=== PATIENT | female | born 1980 | race Caucasian/White ===

== ENCOUNTER 2016-06-15 20:46 | Emergency (ER) | payer OTHER ==
[~2016-06-15] VITALS: Ht 165.1 cm; Wt 90.7 kg
--- NOTE | 2016-06-15 21:16 | ED Syncope ---
General Chief Complaint: Dizziness/Syncope Stated Complaint: DIZZY PASSED OUT INJ ELBOW Source of Information: Patient Exam Limitations: No Limitations History of Present Illness Time Seen by Provider: 21:12 Initial Comments To ER with reports of a an episode of loss of consciousness. Patient states that she was at [place] with family when she bumped her "funny bone" of the left arm on a metal counter which caused intense pain. Immediately after that he became lightheaded and fell to the floor. Her friend at the bedside was present and states that she seemed to be unconscious for about 10-15 seconds and was shaking briefly. She then awakened suddenly and felt fine. Currently, she feels fine. She denies any preceding shortness of breath or palpitations or shortness of breath palpitations or chest pain after the event. Her and her friend at the bedside both insisted that she be checked out. She did have a history of a syncopal event in 2007 on [place] she took a drink of ice cold something and passed out but only briefly. She denies any complaints of pain to the elbow and now denies any headache nausea or other concerns. Timing/Prior Episodes: Remote History Current Symptoms: Headache Constitutional: see HPI EENTM: see HPI Respiratory: no symptoms reported, No short of breath Cardiovascular: see HPI, No edema, No Hx of Intervention, No palpitations, syncope, No vascular heart diseas Genitourinary: no symptoms reported Musculoskeletal: no symptoms reported Skin: no symptoms reported Psychiatric/Neurological: See HPI, Denies Headache Past Uoluueq-Xbduhx-Yyibva Hx Patient Social History Alcohol Use: Denies Use Recreational Drug Use: No Smoking Status: Never a Smoker Recent Foreign Travel: No Contact w/Someone Who Travel: No Recent Hopitalizations: No Seasonal Allergies Seasonal Allergies: No Surgeries HX Surgeries: No Respiratory Hx Respiratory Disorders: No Cardiovascular Hx Cardiac Disorders: No Neurological Hx Neurological Disorders: No Reproductive System Hx Reproductive Disorders: No Genitourinary Hx Genitourinary Disorders: No Gastrointestinal Hx Gastrointestinal Disorders: No Musculoskeletal Hx Musculoskeletal Disorders: No Endocrine Hx Endocrine Disorders: Yes Endocrine Disorders: Hypothyroidsim HEENT HX ENT Disorders: No Cancer Hx Cancer: No Psychosocial Hx Psychiatric Problems: Yes Behavioral Health Disorders: Depression Physical Exam Vital Signs Vital Sign - Last 12Hours 06/15/16 21:00 Temp 97.4 Pulse 93 Resp 18 B/P (MAP) 133/92 Pulse Ox 95 O2 Delivery Room Air Capillary Refill : General Appearance: No Apparent Distress, WD/WN HEENT: PERRL/EOMI, TMs Normal Neck: Full Range of Motion, Normal Inspection Cardiovascular: Regular Rate, Rhythm, No Edema, Normal Peripheral Pulses Respiratory: Lungs Clear, Normal Breath Sounds, No Accessory Muscle Use, No Respiratory Distress Gastrointestinal: Normal Bowel Sounds, Non Tender, Soft Extremities: Normal Capillary Refill, Normal Inspection Neurologic/Psychiatric: Alert, Oriented x3 Cranial Nerves: Normal Hearing, Normal Speech, PERRL Skin: Normal Color, Warm/Dry Progress/Results/Core Measures Results/Orders Lab Results Laboratory Tests Test 06/15/16 21:16 06/15/16 21:42 Range/Units Urine Color YELLOW Urine Clarity SLIGHTLY CLOUDY Urine pH 6.5 5-9 Urine Specific [place] 1.020 1.016-1.022 Urine Protein 1+ H NEGATIVE Urine Glucose (UA) NEGATIVE NEGATIVE Urine Ketones NEGATIVE NEGATIVE Urine Nitrite NEGATIVE NEGATIVE Urine Bilirubin NEGATIVE NEGATIVE Urine Urobilinogen NORMAL NORMAL MG/DL Urine Leukocyte Esterase 3+ H NEGATIVE Urine RBC (Auto) 1+ H NEGATIVE Urine RBC RARE /HPF Urine WBC 10-25 H /HPF Urine Squamous Epithelial Cells 25-50 H /HPF Urine Renal Epithelial Cells NONE /HPF Urine Crystals PRESENT H /LPF Urine Amorphous Sediment MOD ALEAX URATES H /LPF Urine Bacteria FEW H /HPF Urine Casts NONE /LPF Urine Mucus NEGATIVE /LPF Urine Culture Indicated YES White Blood Count 10.8 4.3-11.0 10^3/uL Red Blood Count 4.46 4.35-5.85 10^6/uL Hemoglobin 13.0 11.5-16.0 G/DL Hematocrit 39 35-52 % Mean Corpuscular Volume 87 80-99 FL Mean Corpuscular Hemoglobin 29 25-34 PG Mean Corpuscular Hemoglobin Concent 34 32-36 G/DL Red Cell Distribution Width 13.1 10.0-14.5 % Platelet Count 331 130-400 10^3/uL Mean Platelet Volume 9.0 7.4-10.4 FL Neutrophils (%) (Auto) 55 42-75 % Lymphocytes (%) (Auto) 39 12-44 % Monocytes (%) (Auto) 5 0-12 % Eosinophils (%) (Auto) 1 0-10 % Basophils (%) (Auto) 0 0-10 % Neutrophils # (Auto) 6.0 1.8-7.8 X 10^3 Lymphocytes # (Auto) 4.2 H 1.0-4.0 X 10^3 Monocytes # (Auto) 0.5 0.0-1.0 X 10^3 Eosinophils # (Auto) 0.1 0.0-0.3 10^3/uL Basophils # (Auto) 0.0 0.0-0.1 10^3/uL D-Dimer 0.50 H 0.00-0.49 UG/ML Sodium Level 140 135-145 MMOL/L Potassium Level 3.9 3.6-5.0 MMOL/L Chloride Level 104 98-107 MMOL/L Carbon Dioxide Level 26 21-32 MMOL/L Anion Gap 10 5-14 MMOL/L Blood Urea Nitrogen 11 7-18 MG/DL Creatinine 0.89 0.60-1.30 MG/DL Estimat Glomerular Filtration Rate > 60 BUN/Creatinine Ratio 12 Glucose Level 107 H 70-105 MG/DL Calcium Level 9.1 8.5-10.1 MG/DL Total Bilirubin 0.2 0.1-1.0 MG/DL Aspartate Amino Transf (AST/SGOT) 13 5-34 U/L Alanine Aminotransferase (ALT/SGPT) 15 0-55 U/L Alkaline Phosphatase 79 40-136 U/L Total Protein 7.2 6.4-8.2 G/DL Albumin 3.9 3.2-4.5 G/DL Thyroid Stimulating Hormone (TSH) 2.82 0.35-4.94 UIU/ML My Orders Orders - RADHA KILGORE DATA ANALYSIS ASSISTANT Cbc With Automated Diff (06/15/16 21:11) Comprehensive Metabolic Panel (06/15/16 21:11) Thyroid Stimulating Hormone (06/15/16 21:11) Ua Culture If Indicated (06/15/16 21:11) Urine Bedside (06/15/16 21:11) Ct Head Wo (06/15/16 21:11) Ekg Tracing (06/15/16 21:11) Fibrin Degradation Products (06/15/16 21:11) Urine Culture (06/15/16 21:16) Vital Signs/I&O Vital Sign - Last 12Hours 06/15/16 21:00 Temp 97.4 Pulse 93 Resp 18 B/P (MAP) 133/92 Pulse Ox 95 O2 Delivery Room Air Diagnostic Imaging Diagonstic Imaging: CT Comments NAME: [facility] REC#: [id number] PT STATUS: REG ER : 1980 PHYSICIAN: RADHA KILGORE APRN ADMIT DATE: 06/15/16/ER Signed Date of Exam:06/15/16 CT HEAD WO PROCEDURE: CT head without contrast. TECHNIQUE: Multiple contiguous axial images were obtained through the brain without the use of intravenous contrast. Indication: Dizziness, passed out and hit head. Comparison: None available. Findings: No hyperdense hemorrhage or space-occupying mass. Prominent cisterna magna, a normal variant. No hydrocephalus or midline shift. The basilar cisterns are normal. Lambert-white matter differentiation is well preserved. The mastoid air cells are clear. Paranasal sinuses are normal. No focal osseous abnormality of the calvarium. Impression: No acute intracranial process. Dictated by: Dictated on workstation # [id number] Dict: 06/15/162140 Trans: 06/15/162142 [facility] [id number] Interpreted by: THOMAS WELLINGTON MD Electronically signed by: THOMAS WELLINGTON MD 06/15/162142 Departure Communication Progress Notes [id number] discussed with the patient and her the positive d-dimer albeit only minimally positive at 0.5 with a cut off being normal less than 0.49. The patient is on control but she has no history of clotting disorders she is a nonsmoker she has no unilateral leg swelling, she is not short of breath or tachycardic and has no personal or family history of DVT or PE. Given these findings I would recommend and she agrees that the risks of pulmonary embolism with her being completely asymptomatic do not justify the cost and the radiation of the CT pulmonary angiogram. In regards to the questionable left atrial abnormality on EKG I did discuss this with Dr. De La Paz who feels it is a questionable call but would recommend admitting the patient for observation and 2-D echocardiogram in the morning. I discussed this with the patient and her and they are discussing admission versus follow-up with her primary care provider. 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 2244-patient has decided to go home. Agrees to return for any worsening or other concerning symptoms. Impression Impression: Primary Impression: Vasovagal syncope Additional Impression: Urinary tract infection Departure-Patient Inst. Decision time for Depature: 22:32 Referrals: NO,LOCAL PHYSICIAN (PCP) Primary Care Physician Patient Instructions: Syncope (Fainting) (DC), Urinary Tract Infection, Adult ( DC) Add. Discharge Instructions: 1. Call your family physician tomorrow morning to make an appointment to be seen this week for further evaluation 2. Return to the emergency room for any symptoms that concern you such as shortness of breath, recurrent passing out, chest pain All discharge instructions reviewed with patient and/or family. Voiced understanding. Scripts Sulfamethoxazole/Trimethoprim (Bactrim Ds Tablet) 1 Each Tablet 1 EACH PO BID for 3 Days, #6 TAB Prov: RADHA KILGORE APRN 06/15/16 RADHA KILGORE APRN Jun 15, 2016 21:15
[2016-06-15 21:22] LABS: BILIRUBIN,URINE NEGATIVE (NEGATIVE); KETONES,URINE NEGATIVE (NEGATIVE); LEUKOCYTE ESTERASE ,URINE 3+ (NEGATIVE); NITRITE,URINE NEGATIVE (NEGATIVE); PH,URINE 6.5 (5-9); PROTEIN,URINE 1+ (NEGATIVE); UROBILINOGEN,URINE NORMAL (NORMAL)
[2016-06-15 21:38] LABS: SQUAMOUS EPITHELIAL CELL,UR 25-50 /HPF
--- NOTE | 2016-06-15 21:45 | Diagnostic Imaging Report ---
PROCEDURE: CT head without contrast. TECHNIQUE: Multiple contiguous axial images were obtained through the brain without the use of intravenous contrast. Indication: Dizziness, passed out and hit head. Comparison: None available. Findings: No hyperdense hemorrhage or space-occupying mass. Prominent cisterna magna, a normal variant. No hydrocephalus or midline shift. The basilar cisterns are normal. Lambert-white matter differentiation is well preserved. The mastoid air cells are clear. Paranasal sinuses are normal. No focal osseous abnormality of the calvarium. Impression: No acute intracranial process. Dictated by: Dictated on workstation # [id number]
[2016-06-15 21:56] LABS: BASOPHILS % (AUTO) 0 % (0-10); EOSINOPHILS # (AUTO) 0.1 10^3/uL (0.0-0.3); EOSINOPHILS % (AUTO) 1 % (0-10); LYMPHOCYTES # (AUTO) 4.2 X 10^3 (1.0-4.0); LYMPHOCYTES % (AUTO) 39 % (12-44); MEAN CORPUSCULAR HEMOGLOBIN 29 PG (25-34); MEAN CORPUSCULAR HGB CONC 34 G/DL (32-36); MEAN CORPUSCULAR VOLUME 87 FL (80-99); MONOCYTES # (AUTO) 0.5 X 10^3 (0.0-1.0); MONOCYTES % (AUTO) 5 % (0-12); NEUTROPHILS % (AUTO) 55 % (42-75); PLATELET COUNT 331 10^3/uL (130-400); RED BLOOD COUNT 4.46 10^6/uL (4.35-5.85); RED CELL DISTRIBUTION WIDTH 13.1 % (10.0-14.5); WHITE BLOOD COUNT 10.8 10^3/uL (4.3-11.0)
[2016-06-15 22:09] LABS: ALANINE AMINOTRANSFERASE 15 U/L (0-55); ALBUMIN 3.9 G/DL (3.2-4.5); ANION GAP 10 MMOL/L (5-14); ASPARTATE AMINO TRANSFERASE 13 U/L (5-34); BILIRUBIN,TOTAL 0.2 MG/DL (0.1-1.0); BLOOD UREA NITROGEN 11 MG/DL (7-18); BUN/CREATININE RATIO 12; CALCIUM 9.1 MG/DL (8.5-10.1); CARBON DIOXIDE 26 MMOL/L (21-32); CHLORIDE 104 MMOL/L (98-107); CREATININE SERUM 0.89 MG/DL (0.60-1.30); GFR ESTIMATED > 60; GLUCOSE 107 MG/DL (70-105); POTASSIUM 3.9 MMOL/L (3.6-5.0); SODIUM 140 MMOL/L (135-145); TOTAL PROTEIN 7.2 G/DL (6.4-8.2)
[2016-06-15 22:28] LABS: THYROID STIMULATING HORMONE 2.82 UIU/ML (0.35-4.94)
[2016-06-15] MEDS ORDERED: SULF1TAB35 PO (22:44)
[2016-06-15 22:52] VITALS: BP 141/78
== END 2016-06-15 22:52 | disposition home or self-care (01) ==
LOC: ER 20:52
DX: R55 Syncope and collapse (principal); N39.0 Urinary tract infection, site not specified
CPT/HCPCS: 36415; 70450; 80053; 81000; 84443; 84703; 85025; 85379; 87088; 93005